=== PATIENT | male | born 1960 | race Caucasian/White ===

== ENCOUNTER 2018-10-17 16:10 | Emergency (ER) | payer BC ==
[~2018-10-17] VITALS: Ht 167.6 cm; Wt 88.4 kg
[2018-10-17] MEDS ORDERED: ROSU20TA5 PO (16:20)
[2018-10-17] MEDS ORDERED: NEUR300C PO (16:20)
[2018-10-17] MEDS ORDERED: TRAM50TA2 PO (16:20)
[2018-10-17] MEDS ORDERED: CAND16TA7 PO (16:20)
[2018-10-17] MEDS ORDERED: MULTCAP PO (16:20)
[2018-10-17] MEDS ORDERED: ASPI81TA85 PO (16:20)
[2018-10-17] MEDS ORDERED: COQ1200C3 PO (16:20)
[2018-10-17] MEDS ORDERED: PHENYLEPHRINE 0.5% NASAL SPRAY 15 ML ONE (18:00)
[2018-10-17 18:01] LABS: HEMATOCRIT 47.3 % (42.0-52.0); HEMOGLOBIN 15.9 g/dl (13.5-17.5); MEAN CORPUSCULAR HEMOGLOBIN 31.2 pg (27.0-33.0); MEAN CORPUSCULAR HGB CONC 33.6 g/dl (32.0-36.5); MEAN CORPUSCULAR VOLUME 92.7 fl (80.0-96.0); PLATELET COUNT, AUTOMATED 218 10^3/uL (150-450)
[2018-10-17 18:58] VITALS: BP 155/88
--- NOTE | 2018-10-18 09:16 | REP ---
Chest PA and lateral 10/17/2018 Comparison portable chest 11/08/2012. Clinical history: Aspiration. Findings: Two-view show the lungs well inflated without infiltrate, effusion, atelectasis or mass. No pleural thickening apical scarring or pneumothorax. The heart, mediastinal and hilar contours are normal. Aorta and airway intact bony thorax shows no focal lesion. No free air under the diaphragm. A few cuffed bronchi in the perihilar regions and infrahilar regions. Impression: 1. Perihilar changes of bronchitis or reactive airway disease without dense consolidation or effusion. Heart, mediastinal and hilar contours normal. Electronically Signed by Sameer Rosario MD 10/18/2018 08:05 P
--- NOTE | 2018-10-18 09:49 | REP ---
SOFT-TISSUE NECK: 10/17/2018. Clinical history: Aspiration. Findings: Two lateral view and an AP view were provided. The oropharynx, hypopharynx, epiglottis were unremarkable. No prevertebral swelling. Subglottic airway is intact. No foreign body identified. Calcifications to the left of the cervical spine at C4-5 suggesting carotid arterial calcification in the bulb. The bony cervical vertebral bodies and disc spaces intact. Some minor hypertrophic facet changes Impression: 1. Airway from nasopharynx to the subglottic trachea intact. No stenosis, foreign body or other significant finding. Electronically Signed by Sameer Rosario MD 10/18/2018 08:19 P
== END 2018-10-17 19:00 | disposition home or self-care (01) ==
LOC: M ED 16:10
DX: R09.89 Other specified symptoms and signs involving the circulatory and respiratory systems (principal); F45.8 Other somatoform disorders; I10 Essential (primary) hypertension; E78.5 Hyperlipidemia, unspecified; Z79.82 Long term (current) use of aspirin; Z79.899 Other long term (current) drug therapy